=== PATIENT | female | born 1975 | race Caucasian/White ===

== ENCOUNTER 2018-03-20 16:25 | Outpatient (REF) | payer BC, SELFPAY ==
[2018-03-20 22:04] LABS: HCT 38.8 % (36.0-46.0); Mean Corp. HGB Concentration 33.5 g/dL (32.0-36.0); Mean Corpuscular Hemoglobin 30.3 pg (27.0-33.0); Mean Corpuscular Volume 90.4 fL (80-95); Mean Platelet Volume 10.3 fL (8.0-11.0); Platelet Count 308 x1000/uL (130-400); RBC 4.29 m/cumm (4.00-5.20); RBC Distribution Width 13.8 % (11.7-14.6); White Blood Cell Count 4.16 k/cumm (4.4-10.8)
[2018-03-20 22:49] LABS: Cholesterol 224 mg/dL (50-200); HDL Cholesterol 97 mg/dL (40-60); LDL CHOLESTEROL 116 mg/dL (<100); Triglyceride 51 mg/dL (30-150)
[2018-03-20 22:50] LABS: Vitamin B12 > 2000 pg/mL (193-986)
== END 2018-03-20 16:45 ==
LOC: NCHCN 16:25
PROVIDERS: PCP Nurse Practitioner Family; Visit Provider Nurse Practitioner Family
DX: Z00.00 Encounter for general adult medical examination without abnormal findings (principal); D50.9 Iron deficiency anemia, unspecified; Z13.220 Encounter for screening for lipoid disorders
CPT/HCPCS: 80061; 83721; 85027; 82607

== ENCOUNTER 2018-08-06 14:37 | Outpatient (REF) | payer BC, SELFPAY ==
--- NOTE | 2018-08-06 14:00 | SKI_PTH ---
PATIENT: Tiffany Rhoades LOC: [facility]#:[id number] AGE/SX: 43/F ROOM: RE08/06/[address]: Alix Marvin : 1975 BED: DIS: 08/06/2018 SPEC #: [id number] RECD: 08/07/18 12:11 STATUS: PRASAD TOLBERT #: [id number] ZIGGY: 08/06/18 14:[address]: Alix Kam DEPT: Surgical Specimen RECD BY: Odette Nj Tissues: 1 - SKIN BIOPSY(SHAVE/PUNCH) Procedures: SKIN LEVEL 4 Comments: [id number]
== END 2018-08-06 14:57 ==
LOC: NCHCN 14:37
PROVIDERS: PCP Nurse Practitioner Family; Visit Provider Nurse Practitioner Family
DX: B07.9 Viral wart, unspecified (principal)
CPT/HCPCS: 88304; 88305

== ENCOUNTER 2019-12-02 14:45 | Outpatient (REF) | payer BC, SELFPAY ==
[2019-12-05 22:21] LABS: SARS-CoV-2 RNA Undetected (Undetected); SARS-CoV-2 Specimen Source Nasopharynx
== END 2019-12-02 15:05 ==
LOC: NCHCN 14:45
PROVIDERS: PCP Nurse Practitioner Family; Visit Provider Nurse Practitioner Family
DX: Z11.59 Encounter for screening for other viral diseases (principal)
CPT/HCPCS: U0003

== ENCOUNTER 2019-12-16 17:20 | Outpatient (REF) | payer BC, SELFPAY ==
[2019-12-16 21:07] LABS: HCT 34.6 % (36.0-46.0); MCH 27.4 pg (27.0-33.0); MCHC 31.8 % (32.0-36.0); MCV 86.3 fL (80-95); MPV 10.4 fL (8.0-11.0); Platelet Count 356 10^3/uL (130-400); RBC 4.01 10^6/uL (3.93-5.22); RDW 14.6 % (11.7-14.6); RDW-SD 46.5 fL; WBC 4.09 10^3/uL (4.4-10.8)
[2019-12-16 21:26] LABS: ALT 23 U/L (14-59); AST 26 U/L (15-37); Albumin 3.5 g/dL (3.4-5.0); Alkaline Phosphatase 55 U/L (46-116); Anion Gap 8.8 mmol/L (3-11); BUN 9 mg/dL (7-18); Bilirubin, Total 0.4 mg/dL (0.2-1.0); C-Reactive Protein 0.05 mg/dL (0.0-0.3); CO2 26.2 mmol/L (21.0-32.0); CREATININE 0.82 mg/dL (0.55-1.02); Calcium 9.1 mg/dL (8.5-10.1); Chloride 102 mmol/L (98-107); Glucose 92 mg/dL (74-106); Potassium 3.9 mmol/L (3.5-5.1); Sodium 137 mmol/L (136-145); TSH 0.85 uIU/mL (0.36-3.74); Total Protein 6.7 g/dL (6.4-8.2)
[2019-12-16 22:45] LABS: ESR 24 mm/hr (0-20)
== END 2019-12-16 17:40 ==
LOC: NCHCN 17:20
PROVIDERS: PCP Nurse Practitioner Family; Visit Provider Nurse Practitioner Family
DX: R19.8 Other specified symptoms and signs involving the digestive system and abdomen (principal); M25.50 Pain in unspecified joint
CPT/HCPCS: 80053; 85027; 85652; 84443; 86140

== ENCOUNTER 2021-01-28 15:04 | Outpatient (REF) | payer BC, SELFPAY ==
[2021-01-28 14:51] LABS: HCT 32.6 % (36.0-46.0); HGB 10.3 g/dL (11.2-15.7); MCH 25.9 pg (27.0-33.0); MCHC 31.6 % (32.0-36.0); MCV 82.1 fL (80-95); MPV 9.9 fL (8.0-11.0); Platelet Count 395 10^3/uL (130-400); RBC 3.97 10^6/uL (3.93-5.22); RDW 15.4 % (11.7-14.6); RDW-SD 46.2 fL; WBC 3.26 10^3/uL (4.4-10.8)
[2021-01-28 15:23] LABS: Vitamin D 25 Total 24.9 ng/mL (30-100)
== END 2021-01-28 15:05 | disposition home or self-care (01) ==
LOC: NCHCN 15:04
PROVIDERS: PCP Nurse Practitioner Family; Visit Provider Nurse Practitioner Family
DX: F07.81 Postconcussional syndrome (principal); M85.88 Other specified disorders of bone density and structure, other site; Z86.2 Personal history of diseases of the blood and blood-forming organs and certain disorders involving the immune mechanism
CPT/HCPCS: 82306; 85027

== ENCOUNTER 2022-01-24 17:06 | Outpatient (REF) | payer BC, SELFPAY ==
--- NOTE | 2022-01-24 13:45 | PAPFT_PTH ---
PATIENT: Tiffany Rhoades LOC: [facility]#:[id number] AGE/SX: 46/F ROOM: RE01/24/[address]: Alix Marvin : 1975 BED: DIS: 01/24/2022 SPEC #: [id number] RECD: 01/25/22 12:49 STATUS: PRASAD REQ #: [id number] ZIGGY: 01/24/22 13:[address]: Alix Kam DEPT: [facility] Cytology RECD BY: Odette Nj Tissues: 1 - CX/ENDOCX FOR PAP SMEARS Procedures: PAP THIN PREP/[facility] Screening HPV DNA PROBE Comments: [id number]
[2022-01-24 21:20] LABS: HCT 34.8 % (36.0-46.0); HGB 11.1 g/dL (11.2-15.7); MCH 28.2 pg (27.0-33.0); MCHC 31.9 % (32.0-36.0); MCV 89 fL (80-95); MPV 10.1 fL (8.0-11.0); Platelet Count 359 10^3/uL (130-400); RBC 3.93 10^6/uL (3.93-5.22); RDW 14.1 % (11.7-14.6); RDW-SD 46.4 fL; WBC 4.79 10^3/uL (4.4-10.8)
[2022-01-24 21:48] LABS: Vitamin D 25 Total 39.3 ng/mL (30-100)
== END 2022-01-24 17:07 | disposition home or self-care (01) ==
LOC: NCHCN 17:06
PROVIDERS: PCP Nurse Practitioner Family; Visit Provider Nurse Practitioner Family
DX: Z00.00 Encounter for general adult medical examination without abnormal findings (principal); E55.9 Vitamin D deficiency, unspecified; Z12.4 Encounter for screening for malignant neoplasm of cervix; Z11.51 Encounter for screening for human papillomavirus (HPV)
CPT/HCPCS: 82306; 85027; 88142; 87624

== ENCOUNTER 2023-09-04 17:22 | Outpatient (REF) | payer BC, SELFPAY ==
[2023-09-04 15:36] LABS: HCT 41.1 % (36.0-46.0); HGB 13.7 g/dL (11.2-15.7); MCH 32.6 pg (27.0-33.0); MCHC 33.3 % (32.0-36.0); MCV 98 fL (80-95); MPV 10.2 fL (8.0-11.0); Platelet Count 305 10^3/uL (130-400); RDW 11.4 % (11.7-14.6); WBC 3.57 10^3/uL (4.4-10.8)
[2023-09-04 16:09] LABS: Hemoglobin A1C 5.2 % (<5.7)
[2023-09-04 16:23] LABS: Vitamin D 25 Total 34.3 ng/mL (30-100)
[2023-09-04 16:27] LABS: ALT 30 U/L (14-59); AST 28 U/L (15-37); Albumin 3.6 g/dL (3.4-5.0); Alkaline Phosphatase 58 U/L (46-116); Anion Gap 8.2 mmol/L (3-11); BUN 7 mg/dL (7-18); Bilirubin, Total 0.4 mg/dL (0.2-1.0); CO2 28.8 mmol/L (21.0-32.0); CREATININE 0.8 mg/dL (0.55-1.02); Calcium 9.4 mg/dL (8.5-10.1); Calculated LDL 112 mg/dL (<100); Chloride 100 mmol/L (98-107); Cholesterol 227 mg/dL (<200); Estimated GFR 89.71 (mL/min/1.73m2); Glucose 93 mg/dL (74-106); HDL Cholesterol 108 mg/dL (40-60); Potassium 3.8 mmol/L (3.5-5.1); Sodium 137 mmol/L (136-145); TSH 1.39 uIU/Ml (0.36-3.74); Total Protein 7.1 g/dL (6.4-8.2); Triglyceride 35 mg/dL (<150)
== END 2023-09-04 17:23 | disposition home or self-care (01) ==
LOC: NCHCN 17:22
PROVIDERS: PCP Nurse Practitioner Family; Visit Provider Nurse Practitioner Family
DX: Z00.00 Encounter for general adult medical examination without abnormal findings (principal); Z13.6 Encounter for screening for cardiovascular disorders; Z13.1 Encounter for screening for diabetes mellitus; Z13.29 Encounter for screening for other suspected endocrine disorder; E55.9 Vitamin D deficiency, unspecified
CPT/HCPCS: 80053; 80061; 82306; 85027; 83036; 84443

== ENCOUNTER 2025-03-27 10:16 | Outpatient (REF) | payer BC, SELFPAY ==
[2025-03-27 14:24] LABS: HCT 40.0 % (36.0-46.0); HGB 14.0 g/dL (11.2-15.7); MCH 33.2 pg (27.0-33.0); MCHC 35.0 % (32.0-36.0); MCV 95 fL (80-95); MPV 10.1 fL (8.0-11.0); Platelet Count 271 10^3/uL (130-400); RBC 4.22 10^6/uL (3.93-5.22); RDW 10.6 % (11.7-14.6); RDW-SD 36.5 fL; WBC 3.96 10^3/uL (4.4-10.8)
[2025-03-27 14:49] LABS: Anion Gap 5.8 mmol/L (3-11); BUN 9 mg/dL (9-23); CO2 27.7 mmol/L (20.0-31.0); Calcium 9.4 mg/dL (8.3-10.6); Chloride 100 mmol/L (98-107); Glucose 84 mg/dL (74-106); Potassium 3.8 mmol/L (3.5-5.1); Sodium 133 mmol/L (136-145)
[2025-03-27 14:52] LABS: Vitamin B12 596 pg/mL (211-911)
== END 2025-03-27 10:17 | disposition home or self-care (01) ==
LOC: NCHCN 10:16
PROVIDERS: PCP Nurse Practitioner Family; Visit Provider Nurse Practitioner Family
DX: Z13.21 Encounter for screening for nutritional disorder (principal)
CPT/HCPCS: 80048; 85027; 82607